=== PATIENT | female | born 2000 | race Hispanic/Latino ===

== ENCOUNTER 2024-10-15 18:46 | Emergency (ER) | payer OTHER ==
[2024-10-15 19:16] LABS: Glucose, Urine (Dipstick) Normal (Negative); Leukocyte Negative (Negative); Protein, Urine (Dipstick) 15 mg/dl (Neg-Trace); Specific Gravity, Urine 1.025 (1.005-1.030)
[2024-10-15 19:19] LABS: #Basophils 0.04 10x3/uL (0.0-0.2); #Eosinophils 0.20 10x3/uL (0.0-0.5); #Monocytes 0.70 10x3/uL (0.0-1.1); #Neutrophils 4.71 10x3/uL (1.5-8.4); %Basophils 0.5 % (0.0-2.0); %Eosinophils 2.4 % (0.0-6.0); %Lymphocytes 31.0 % (18.0-47.0); %Monocytes 8.5 % (0.0-10.0); %Neutrophils 56.9 % (40.0-75.0); Hematocrit 37.4 % (34.9-44.5); Hemoglobin 12.7 g/dL (12.0-15.5); Mean Corpuscular Hemoglobin 29.6 pg (27.0-33.0); Mean Corpuscular Volume 87.2 fL (81.6-98.3); Platelet Count 206 10x3/uL (150-450); Red Blood Cell (RBC) Count 4.29 10x6/uL (3.90-5.03); White Blood Cell (WBC) Count 8.27 10x3/uL (3.5-10.5)
[2024-10-15 19:25] LABS: Bacteria/HPF 1+ HPF (None Seen); CAUTI Indications for Culture Dysuria,urgency,freq; RBC/HPF 0-3 HPF (0-3); WBC/HPF 0-3 HPF (0-3)
[2024-10-15 19:26] LABS: Mucous/LPF Rare LPF (<2+)
[2024-10-15 19:27] LABS: Urine Culture Reflex No No
[2024-10-15 19:45] LABS: ALT (SGPT) 11 U/L (Less than 34); AST (SGOT) 19 U/L (11-34); Albumin 3.3 g/dL (3.1-4.5); Alkaline Phosphatase 48 U/L (40-110); Anion Gap 10 mmol/L (10-20); BUN (Urea Nitrogen) 10 mg/dL (7.0-18.7); Bilirubin, Total 0.2 mg/dL (0.3-1.2); Calc. Creatinine Clearance 0 mL/min (70-130); Calcium 8.2 mg/dL (7.8-10.44); Carbon Dioxide 23 mmol/L (22-29); Chloride 110 mmol/L (98-107); Globulin 3.2 g/dL (2.4-3.5); Glucose 81 mg/dL (70-105); Potassium 3.6 mmol/L (3.5-5.1); Sodium 139 mmol/L (136-145)
== END 2024-10-15 23:30 | disposition home or self-care (01) ==
LOC: CSHERS 18:46
DX: O26.892 Other specified pregnancy related conditions, second trimester (principal); O26.832 Pregnancy related renal disease, second trimester; N23 Unspecified renal colic; Z3A.18 18 weeks gestation of pregnancy
CPT/HCPCS: 36415; 76775; 80053; 81001; 84702; 85025; 86900; 86901

== ENCOUNTER 2025-03-01 15:27 | Inpatient (IN) | payer OTHER ==
[2025-03-01 15:54] VITALS: BMI 32.5
[2025-03-01] MEDS ORDERED: Methylergonovine 0.2 MG/ML VIAL IM PRN (16:02)
[2025-03-01] MEDS ORDERED: hydrALAZINE 20 MG/ML VIAL SLOW IVP PRN (16:02)
[2025-03-01] MEDS ORDERED: Tranexamic Acid 1,000 MG/10 ML VIAL IVP PRN (16:02)
[2025-03-01] MEDS ORDERED: Carboprost 250 MCG/ML AMP IM PRN (16:02)
[2025-03-01] MEDS ORDERED: Ondansetron PF 4 MG/2 ML Vial IVP PRN ×2 (16:02→18:26)
[2025-03-01] MEDS ORDERED: Acetaminophen 500 MG TAB PO PRN (16:02)
[2025-03-01] MEDS ORDERED: HYDROcodone/Acetaminophen 5/325 mg Tablet PO PRN (16:02)
[2025-03-01] MEDS ORDERED: Lidocaine 1% (PF) 30 ML VIAL SC PRN (16:02)
[2025-03-01] MEDS ORDERED: Diphenoxylate HCl/Atropine Tablet PO PRN (16:02)
[2025-03-01 16:13] LABS: Hematocrit 38.0 % (34.9-44.5); Hemoglobin 13.5 g/dL (12.0-15.5); Mean Corpuscular Hemoglobin 30.3 pg (27.0-33.0); Mean Corpuscular Volume 85.2 fL (81.6-98.3); Platelet Count 198 10x3/uL (150-450); Red Blood Cell (RBC) Count 4.46 10x6/uL (3.90-5.03); White Blood Cell (WBC) Count 9.72 10x3/uL (3.5-10.5)
[2025-03-01] MEDS ORDERED: Oxytocin 30 units/NS 500 ML 500 ML IV SCH ×2 (16:15)
[2025-03-01 16:54] LABS: Hep B Surf Ag - L&D Non-Reactive S/CO (NonReactive); Syphilis Antibody Index 0.06 S/CO (<1.00 Non-Reactive)
[2025-03-01] MEDS: fentaNYL/Ropivacaine Epidural 100 ML ONE (16:56)
[2025-03-01] MEDS ORDERED: diphenhydrAMINE 50 MG/ML VIAL IVP PRN (18:26)
[2025-03-01] MEDS ORDERED: Acetaminophen 325 MG TAB PO PRN (18:26)
[2025-03-01] MEDS ORDERED: fentaNYL 2 mcg/Ropivacaine 0.2% Epidural 100 ML CADD EPIDURAL SCH (18:30)
[2025-03-01] MEDS ORDERED: Communication Order-Pharmacy FS SCH (18:30)
[2025-03-01] MEDS: Ibuprofen 800 MG TAB PO PRN (22:39)
[2025-03-02] MEDS ORDERED: Bisacodyl 10 MG SUPP PR PRN (01:00)
[2025-03-02] MEDS ORDERED: Milk Of Magnesia 30 ML UDCUP PO PRN (01:00)
[2025-03-02] MEDS ORDERED: Lanolin Ointment 7 GM TUBE TOP PRN (01:00)
[2025-03-02] MEDS ORDERED: diphenhydrAMINE 25 MG CAP PO PRN (01:00)
[2025-03-02] MEDS ORDERED: Oxytocin 30 units/NS 500 ML 1,000 ML IV SCH (01:00)
[2025-03-02] MEDS ORDERED: Ondansetron PF 4 MG/2 ML Vial IVP PRN (01:00)
[2025-03-02] MEDS ORDERED: hydrALAZINE 20 MG/ML VIAL SLOW IVP PRN (01:03)
[2025-03-02] MEDS: HYDROcodone/Acetaminophen 5/325 mg Tablet PO PRN (02:36)
[2025-03-02] MEDS: Benzocaine-Menthol 82.5 ML CAN TOP PRN (02:38)
[2025-03-02] MEDS: Ibuprofen 800 MG TAB PO SCH (05:33)
[2025-03-02] MEDS: Ferrous Sulfate 325 MG TAB PO SCH (07:56)
[2025-03-03 08:46] VITALS: BP 121/76; TEMP 97.7
== END 2025-03-03 10:40 | disposition home or self-care (01) | DRG 807 ==
LOC: CSHLD/OP 15:27 → CSHLD 15:56 → CSHPP 23:15
PROVIDERS: ADMIT Family Medicine; ATTEND Family Medicine
PROC: 10E0XZZ Delivery of Products of Conception, External Approach (ICD-10-PCS; principal; 2025-03-01)
PROC: 0KQM0ZZ Repair Perineum Muscle, Open Approach (ICD-10-PCS; 2025-03-01)
PROC: 10907ZC Drainage of Amniotic Fluid, Therapeutic from Products of Conception, Via Natural or Artificial Opening (ICD-10-PCS; 2025-03-01)
DX: O70.1 Second degree perineal laceration during delivery (principal); Z37.0 Single live birth; Z3A.39 39 weeks gestation of pregnancy
CPT/HCPCS: 51702; 85027; 86780; 86850; 86900; 86901; 87340; 99285; J7120